=== PATIENT | female | born 1930 | race Caucasian/White ===

== ENCOUNTER 2016-04-05 06:52 | Emergency (ER) | payer MEDICARE ==
[~2016-04-05] VITALS: Ht 162.6 cm; Wt 49.9 kg
[~2016-04-05 06:52] MED LIST: ACET325T9 PO; ALPR0.25 PO; ALPR0.5T PO; BLAC160C PO; CALC-77 PO; CIPR500T94 PO; HYDR-2678 PO; IBUP1TAB12 PO; LISI10TA2 AD; LISI10TA2 PO; NAPR220T70 PO; RANI150T6 PO
--- NOTE | 2016-04-05 07:24 | PHYS DOC ---
Past Medical History Past Medical History: Anxiety, Constipation, Dementia, Hypertension, Other Additional Past Medical Histor: neuropathy, L arm fx, alzheimer, weakness, high blood sugars, dysphagia Past Surgical History: Hysterectomy Alcohol Use: None Drug Use: None Adult General Chief Complaint Chief Complaint: MECHANICAL FALL HPI HPI Patient is a 85 year old female who presents with mentioned. According to health care resort she has a history of dementia and fell last night and then again this morning. After she fell they found her blood pressures of systolic 70 was sent in for evaluation. She is pleasantly demented and currently her blood pressures systolic 94. She will not answer questions and states "leave me alone". Review of Systems Review of Systems In able to obtain secondary to dementia Current Medications Current Medications Current Medications Medications (Trade) Dose Ordered Sig/Cesario Start Time Stop Time Status Last Admin Dose Admin Sodium Chloride (Iv Sodium Chloride 0.9% 1000ml Bag) 1,000 ml @ 1,000 mls/hr 1X ONCE 04/05/16 10:45 04/05/16 11:44 DC 04/05/16 10:45 1,000 MLS/HR Allergies Allergies Allergies Coded Allergies Type Severity Reaction Last Updated Verified donepezil Allergy Intermediate 03/27/16 Yes sertraline Allergy Intermediate 03/27/16 Yes zolpidem Allergy Intermediate 03/30/16 Yes Physical Exam Physical Exam Constitutional: Well developed, well nourished, no acute distress, non-toxic appearance. [] HENT: Normocephalic, atraumatic, bilateral external ears normal, oropharynx moist, no oral exudates, nose normal. [] Eyes: PERRLA, EOMI, conjunctiva normal, no discharge. [] Neck: Cervical collar in place. [] Cardiovascular:Heart rate regular rhythm, no murmur [] Lungs & Thorax: Bilateral breath sounds clear to auscultation [] Abdomen: Bowel sounds normal, soft, mild epigastric tenderness, no masses, no pulsatile masses. [] Skin: Warm, dry, no erythema, no rash. [] Back: No tenderness, no CVA tenderness. [] Extremities: No tenderness, no cyanosis, no clubbing, ROM intact, no edema. [] Neurologic: Alert and somewhat interactive, normal motor function, normal sensory function, no focal deficits noted. [] Current Patient Data Vital Signs Vital Signs Date Time Temp Pulse Resp B/P Pulse Ox O2 Delivery O2 Flow Rate FiO2 04/05/16 11:50 126/62 04/05/16 09:20 90 94 Room Air 04/05/16 07:05 97.9 16 97.9 Lab Values Laboratory Tests Test 04/05/16 06:58 04/05/16 08:00 White Blood Count 5.5x10^3/uL (4.0-11.0) Red Blood Count 3.83x10^6/uL (3.50-5.40) Hemoglobin 10.9g/dL (12.0-15.5) L Hematocrit 33.9% (36.0-47.0) L Mean Corpuscular Volume 89fL (79-100) Mean Corpuscular Hemoglobin 28pg (25-35) Mean Corpuscular Hemoglobin Concent 32g/dL (31-37) Red Cell Distribution Width 15.1% (11.5-14.5) H Platelet Count 228x10^3/uL (140-400) Neutrophils (%) (Auto) 72% (31-73) Lymphocytes (%) (Auto) 16% (24-48) L Monocytes (%) (Auto) 11% (0-9) H Eosinophils (%) (Auto) 1% (0-3) Basophils (%) (Auto) 1% (0-3) Neutrophils # (Auto) 4.0x10^3uL (1.8-7.7) Lymphocytes # (Auto) 0.9x10^3/uL (1.0-4.8) L Monocytes # (Auto) 0.6x10^3/uL (0.0-1.1) Eosinophils # (Auto) 0.0x10^3/uL (0.0-0.7) Basophils # (Auto) 0.0x10^3/uL (0.0-0.2) Prothrombin Time 13.2SEC (11.7-14.0) Prothrombin Time INR 1.1 (0.8-1.1) PTT 31SEC (24-38) Sodium Level 137mmol/L (136-145) Potassium Level 3.8mmol/L (3.5-5.1) Chloride Level 102mmol/L (98-107) Carbon Dioxide Level 25mmol/L (21-32) Anion Gap 10 (6-14) Blood Urea Nitrogen 13mg/dL (7-20) Creatinine 0.8mg/dL (0.6-1.0) Estimated GFR (Cockcroft-Gault) 67.8 BUN/Creatinine Ratio 16 (6-20) Glucose Level 120mg/dL (70-99) H Calcium Level 8.7mg/dL (8.5-10.1) Total Bilirubin 0.3mg/dL (0.2-1.0) Aspartate Amino Transferase (AST) 17U/L (15-37) Alanine Aminotransferase (ALT) 15U/L (14-59) Alkaline Phosphatase 73U/L (46-116) Creatine Kinase 66U/L (26-192) Creatine Kinase MB (Mass) 1.0ng/mL (0.0-3.6) Creatine Kinase MB Relative Index % (0-4) Total Protein 5.7g/dL (6.4-8.2) L Albumin 2.8g/dL (3.4-5.0) L Albumin/Globulin Ratio 1.0 (1.0-1.7) Lipase 113U/L (73-393) Urine Collection Type U cath Urine Color Yellow Urine Clarity Clear Urine pH 6.0 Urine Specific [place] 1.015 Urine Protein Negativemg/dL (NEG-TRACE) Urine Glucose (UA) Negativemg/dL (NEG) Urine Ketones (Stick) Negativemg/dL (NEG) Urine Blood Negative (NEG) Urine Nitrite Negative (NEG) Urine Bilirubin Negative (NEG) Urine Urobilinogen Dipstick 0.2mg/dL (0.2 mg/dL) Urine Leukocyte Esterase Negative (NEG) Urine RBC Occ/HPF (0-2) Urine WBC 1-4/HPF (0-4) Urine Squamous Epithelial Cells Mod/LPF Urine Transitional Epithelial Cells Occ/LPF Urine Renal Epithelial Cells Occ/LPF Urine Bacteria 0/HPF (0-FEW) Urine Mucus Slight/LPF Laboratory Tests 04/05/16 06:58 Laboratory Tests 04/05/16 06:58 EKG EKG EKG shows normal sinus rhythm with no ST elevations or T-wave inversions, left axis deviation, as interpreted by me. Radiology/Procedures Radiology/Procedures [facility] [address] [place], [place] [id number] IMAGING REPORT Signed PATIENT: EDUARDO BEE: [id number] : 1930 LOCATION: ER AGE: 85 SEX: F EXAM STATUS: REG ER ORD. PHYSICIAN: SHAHEEN RODRIGUEZ MD REASON: fall with neck pain PROCEDURE: HEAD AND CERVICAL SPINE WO CT of the head without contrast, 04/05/2016: History: Dementia, fall, head and neck pain Comparison is made to a study from 06/20/2013. There is mild cerebral atrophy. There are mild unchanged deep white matter lucencies compatible with chronic ischemic change. The ventricles are mildly enlarged on a compensatory basis. There is no shift of the midline structures. There is no evidence of acute intracranial hemorrhage or mass effect. There is calcific plaquing of the distal internal carotid and vertebral arteries. IMPRESSION: 1. Chronic findings as described above. 2. No acute intracranial abnormality is detected. CT of the cervical spine without contrast, 04/05/2016: Noncontrast scans were obtained with multiplanar reconstructions produced. No acute fracture or dislocation is identified. There is partial fusion of the C4 and C5 vertebral bodies and facet joints. There is moderate narrowing of multiple disc spaces in the cervical spine with moderate scattered marginal spurs. There are moderate hypertrophic degenerative changes involving multiple facet joints bilaterally. The central spinal canal is well-preserved. There is mild foraminal encroachment at several levels bilaterally. There is an 18 mm spiculated opacity in the right pulmonary apex. An additional smaller 5 mm nodular opacity is also seen in this region. While the findings may be due to scarring, a neoplastic etiology cannot be excluded. IMPRESSION: 1. Moderate multilevel hypertrophic degenerative change. 2. No acute bony abnormality. 3. Right apical pulmonary opacities as described above. PQRS Compliance Statement: One or more of the following individualized dose reduction techniques were utilized for this examination: 1. Automated exposure control 2. Adjustment of the mA and/or kV according to patient size 3. Use of iterative reconstruction technique DICTATED and SIGNED BY: CARLO SHOEMAKER MD DATE: 04/05/16819 CC: SHAHEEN RODRIGUEZ MD; ANTHONY WESTBROOK Jr, MD ~ Impressions: Closed head injury Dehydration Course & Med Decision Making Course & Med Decision Making Pertinent Labs and Imaging studies reviewed. (See chart for details) She presents after a fall and low blood pressure. Her labs show any acute abdomen allergies, CT head and neck also nonacute. She is cleared out of the collar and received 500 normal saline in repeat blood pressures up in the 120s 140s. She is being discharged back to healthcare resort with return precautions. Family who is at bedside agreed with the plan. Dragon Disclaimer Dragon Disclaimer This electronic medical record was generated, in whole or in part, using a voice recognition dictation system. Departure Departure Impression: Primary Impression: Closed head injury Disposition: 01 HOME, SELF-CARE Condition: IMPROVED Referrals: ANTHONY WESTBROOK Jr, MD (PCP) SHAHEEN RODRIGUEZ MD Apr 05, 2016 07:24
[2016-04-05 07:44] LABS: BASO % 1 % (0-3); EOS % 1 % (0-3); HEMATOCRIT 33.9 % (36.0-47.0); HEMOGLOBIN 10.9 g/dL (12.0-15.5); LYMPH # 0.9 x10^3/uL (1.0-4.8); LYMPH % 16 % (24-48); MEAN CORPUSCULAR HEMOGLOBIN 28 pg (25-35); MEAN CORPUSCULAR HGB CONC 32 g/dL (31-37); MEAN CORPUSCULAR VOLUME 89 fL (79-100); MONO % 11 % (0-9); NEUT % 72 % (31-73); PLATELET COUNT 228 x10^3/uL (140-400); RED BLOOD COUNT 3.83 x10^6/uL (3.50-5.40); RED CELL DISTRIBUTION WIDTH 15.1 % (11.5-14.5); WHITE BLOOD COUNT 5.5 x10^3/uL (4.0-11.0)
[2016-04-05 07:49] LABS: CALCIUM 8.7 mg/dL (8.5-10.1); CREATININE 0.8 mg/dL (0.6-1.0); GFR 67.8; POTASSIUM 3.8 mmol/L (3.5-5.1)
[2016-04-05 07:55] LABS: ALBUMIN 2.8 g/dL (3.4-5.0); TOTAL BILIRUBIN 0.3 mg/dL (0.2-1.0); TOTAL PROTEIN 5.7 g/dL (6.4-8.2)
[2016-04-05 07:56] LABS: INR 1.1 (0.8-1.1); PROTHROMBIN TIME PATIENT 13.2 SEC (11.7-14.0)
[2016-04-05 08:04] LABS: CREATINE KINASE 66 U/L (26-192)
--- NOTE | 2016-04-05 08:08 | EKG ---
[facility] [address] [place] [id number] Test Date: 2016-04-05 Test Time: 07:36:19 Pat Name: EDUARDO BEE Department: Room: Gender: F Military Nurse: : 1930 Requested By: SHAHEEN RODRIGUEZ Order Number: [id number] Reading MD: Lilliana Juarez Measurements Intervals [place] Rate: 81 P: 52 VA: 194 QRS: -24 QRSD: 92 T: 42 QT: 394 QTc: 458 Interpretive Statements SINUS RHYTHM LEFTWARD AXIS NO SPECIFIC ECG ABNORMALITIES RI6.01 Compared to ECG 03/27/2016 14:11:33 No significant changes Electronically Signed On 04-07-2016 23:55:27 EXERCISE INSTRUCTOR by Lilliana Juarez
[2016-04-05 08:13] LABS: BILIRUBIN,URINE NEGATIVE (NEG); GLUCOSE,URINE NEGATIVE (NEG); NITRITE,URINE NEGATIVE (NEG); PROTEIN,URINE NEGATIVE (NEG-TRACE); UROBILINOGEN,URINE 0.2 mg/dL (0.2 mg/dL)
[2016-04-05 08:23] LABS: BACTERIA,URINE 0 /HPF (0-FEW); RBC,URINE OCC /HPF (0-2); SQUAMOUS EPITHELIAL CELL,UR MOD /LPF
--- NOTE | 2016-04-05 08:31 | RAD ---
CT of the head without contrast, 04/05/2016: History: Dementia, fall, head and neck pain Comparison is made to a study from 06/20/2013. There is mild cerebral atrophy. There are mild unchanged deep white matter lucencies compatible with chronic ischemic change. The ventricles are mildly enlarged on a compensatory basis. There is no shift of the midline structures. There is no evidence of acute intracranial hemorrhage or mass effect. There is calcific plaquing of the distal internal carotid and vertebral arteries. IMPRESSION: 1. Chronic findings as described above. 2. No acute intracranial abnormality is detected. CT of the cervical spine without contrast, 04/05/2016: Noncontrast scans were obtained with multiplanar reconstructions produced. No acute fracture or dislocation is identified. There is partial fusion of the C4 and C5 vertebral bodies and facet joints. There is moderate narrowing of multiple disc spaces in the cervical spine with moderate scattered marginal spurs. There are moderate hypertrophic degenerative changes involving multiple facet joints bilaterally. The central spinal canal is well-preserved. There is mild foraminal encroachment at several levels bilaterally. There is an 18 mm spiculated opacity in the right pulmonary apex. An additional smaller 5 mm nodular opacity is also seen in this region. While the findings may be due to scarring, a neoplastic etiology cannot be excluded. IMPRESSION: 1. Moderate multilevel hypertrophic degenerative change. 2. No acute bony abnormality. 3. Right apical pulmonary opacities as described above. PQRS Compliance Statement: One or more of the following individualized dose reduction techniques were utilized for this examination: 1. Automated exposure control 2. Adjustment of the mA and/or kV according to patient size 3. Use of iterative reconstruction technique
[2016-04-05] MEDS ORDERED: IV NORMAL SALINE 1000ML BAG 1,000 ML IV ONE (10:45)
[2016-04-05 12:36] VITALS: BP 142/70
== END 2016-04-05 13:08 | disposition home or self-care (01) ==
LOC: ER 06:52
DX: S09.90XA Unspecified injury of head, initial encounter (principal); R10.816 Epigastric abdominal tenderness; I95.9 Hypotension, unspecified; I10 Essential (primary) hypertension; F41.9 Anxiety disorder, unspecified; G30.9 Alzheimer's disease, unspecified; F02.80 Dementia in other diseases classified elsewhere, unspecified severity, without behavioral disturbance, psychotic disturbance, mood disturbance, and anxiety; Z90.710 Acquired absence of both cervix and uterus; Z88.8 Allergy status to other drugs, medicaments and biological substances; W19.XXXA Unspecified fall, initial encounter; Y93.89 Activity, other specified; Y92.89 Other specified places as the place of occurrence of the external cause; Y99.8 Other external cause status
CPT/HCPCS: 36415; 70450; 72125; 80053; 81001; 82553; 83690; 85027; 85610; 85730; 93005; 96360; 99285; J7030; 96361